=== PATIENT | female | born 2000 | race Caucasian/White ===

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

== ENCOUNTER 2021-02-16 12:38 | Emergency (ER) | payer OTHER ==
[~2021-02-16] VITALS: Ht 154.9 cm; Wt 66.3 kg
[~2021-02-16 12:38] MED LIST changes: +DOCU100C16 PO; +IBUP80TA PO
[2021-02-16] MEDS ORDERED: NS 1,000 ML IV ONE (13:25)
[2021-02-16] MEDS ORDERED: ONDANSETRON 4MG/2ML VIAL IV ONE (13:25)
[2021-02-16 14:02] LABS: BASO % 0.3 % (0.0-1.0); EOS % 0.3 % (0.0-3.0); HEMOGLOBIN 12.6 g/dl (12.0-15.5); LYMPH # 1.8 10^3/uL (1.5-5.0); LYMPH % 26.1 % (24.0-44.0); MEAN CORPUSCULAR HEMOGLOBIN 28.5 pg (27.0-33.0); MEAN CORPUSCULAR HGB CONC 33.2 g/dl (32.0-36.5); MONO # 0.4 10^3/uL (0.0-0.8); MONO % 6.1 % (2.0-8.0); NEUTROPHILS # 4.7 10^3/uL (1.5-8.5); NEUTROPHILS % 66.9 % (36.0-66.0); PLATELET COUNT, AUTOMATED 230 10^3/uL (150-450); RED BLOOD COUNT 4.42 10^6/uL (4.00-5.40)
[2021-02-16] MEDS ORDERED: ACETAMINOPHEN TAB 650MG DOSE (2X325MG) PO ONE (14:45)
[2021-02-16] MEDS ORDERED: ZOFR4TAB16 PO (14:46)
[2021-02-16 14:55] VITALS: BP 106/61
== END 2021-02-16 15:07 | disposition home or self-care (01) ==
LOC: M ED 12:38
DX: O21.9 Vomiting of pregnancy, unspecified (principal); O99.282 Endocrine, nutritional and metabolic diseases complicating pregnancy, second trimester; E86.0 Dehydration; R51.9 Headache, unspecified; Z3A.00 Weeks of gestation of pregnancy not specified
CPT/HCPCS: 80047; 81001; 85025; 96361; 96374; 99284; J2405

== ENCOUNTER 2021-05-12 07:43 | Inpatient (IN) | payer OTHER ==
[2021-05-12] VITALS (12 sets, daily range): BP systolic 98–137; BP diastolic 51–63
[~2021-05-12] VITALS: Ht 154.9 cm; Wt 70.9 kg
[~2021-05-12 07:43] MED LIST changes: +ZOFR4TAB16 PO
[2021-05-12] MEDS ORDERED: LR 1,000 ML IV ONE (08:20)
[2021-05-12] MEDS ORDERED: ACETAMINOPHEN 500 MG TAB PO PRN ×2 (08:25→12:50)
[2021-05-12] MEDS ORDERED: VENL-115 PO (09:02)
[2021-05-12 09:18] LABS: HEMATOCRIT 31.2 % (36.0-47.0); HEMOGLOBIN 10.3 g/dl (12.0-15.5); MEAN CORPUSCULAR HEMOGLOBIN 28.7 pg (27.0-33.0); MEAN CORPUSCULAR VOLUME 86.9 fl (80.0-96.0); PLATELET COUNT, AUTOMATED 194 10^3/uL (150-450); RED BLOOD COUNT 3.59 10^6/uL (4.00-5.40); WHITE BLOOD COUNT 11.4 10^3/uL (4.0-10.0)
[2021-05-12 09:20] LABS: APPEARANCE, URINE CLOUDY (CLEAR); BACTERIA, URINE AUTO NEGATIVE (NEGATIVE); BILIRUBIN, URINE AUTO NEGATIVE (NEGATIVE); BLOOD, URINE BLOOD NEGATIVE (NEGATIVE); COLOR, URINE AMBER (YELLOW); GLUCOSE, URINE (UA) AUTO NEGATIVE (NEGATIVE); KETONE, URINE AUTO 1+ mg/dL (NEGATIVE); LEUKOCYTE ESTERASE, URINE AUTO 1+ (NEGATIVE); MUCUS, URINE SMALL (NEGATIVE); NITRITE, URINE AUTO NEGATIVE (NEGATIVE); PROTEIN, URINE AUTO 1+ mg/dL (NEGATIVE); RBC, URINE AUTO 2 /HPF (0-3); SPECIFIC GRAVITY URINE AUTO 1.017 (1.002-1.035); SQUAMOUS EPITHELIAL CELL UR AU 50 /HPF (0-6); WBC, URINE AUTO 6 /HPF (0-3)
[2021-05-12] MEDS ORDERED: VALT500T PO (09:20)
[2021-05-12] MEDS ORDERED: TUMS750C5 PO (09:24)
[2021-05-12] MEDS ORDERED: ACET500P3 PO (09:24)
[2021-05-12] MEDS ORDERED: ACET-683 PO (09:35)
[2021-05-12 09:36] LABS: ALBUMIN 2.8 GM/DL (3.2-5.2); ALT/SGPT 13 U/L (12-78); BILIRUBIN,TOTAL 0.5 MG/DL (0.2-1.0); BLOOD UREA NITROGEN 6 MG/DL (7-18); CALCIUM LEVEL 8.2 MG/DL (8.5-10.1); CARBON DIOXIDE LEVEL 20 MEQ/L (21-32); CHLORIDE LEVEL 101 MEQ/L (98-107); CREATININE FOR GFR 0.52 MG/DL (0.55-1.30); GLUCOSE, FASTING 94 MG/DL (70-100); POTASSIUM SERUM 3.3 MEQ/L (3.5-5.1); SODIUM LEVEL 132 MEQ/L (136-145); TOTAL PROTEIN 6.4 GM/DL (6.4-8.2)
[2021-05-12] MEDS ORDERED: ONDANSETRON 4MG/2ML VIAL IV ONE (09:50)
[2021-05-12] MEDS ORDERED: KETOROLAC 30 MG/ML 1ML VIAL IV ONE (10:10)
[2021-05-12] MEDS ORDERED: VENLAFAXINE 37.5 MG TAB PO ONE (10:25)
[2021-05-12] MEDS ORDERED: FLUCONAZOLE 50MG TABLET PO ONE (10:25)
[2021-05-12 10:46] LABS: INFLUENZA A AMPLIFICATION NEGATIVE (NEGATIVE); INFLUENZA B AMPLIFICATION NEGATIVE (NEGATIVE)
[2021-05-12] MEDS: VENLAFAXINE **XR** 75MG CAPSULE PO SCH (11:29)
[2021-05-12] MEDS: PIPERACILLIN/TAZOBACTAM SOD 3.375 GM in D5W MINI-BAG PLUS 50 ML IV SCH ×3 (11:31→23:00)
--- NOTE | 2021-05-12 11:33 | REP ---
INDICATION: abdominal tenderness, fever, r/o appendicitis. COMPARISON: None. TECHNIQUE: Transabdominal limited to the right lower quadrant in order to assess the appendix FINDINGS: Ultrasonographic evaluation of the right lower quadrant failed to identify the appendix. IMPRESSION: Acute appendicitis cannot be ruled out. <Electronically signed by Jeison Coe > 05/12/21 [id number]
[2021-05-12] MEDS: PRENATAL VITAMINS CHEWABLE TABLET PO SCH (11:38)
[2021-05-12] MEDS: metroNIDAZOLE (FLAGYL) 500MG TABLET PO SCH ×2 (11:38→20:49)
--- NOTE | 2021-05-12 11:49 | REP ---
INDICATION: Fever of unknown source, uterine tenderness. COMPARISON: None. TECHNIQUE: Transabdominal imaging FINDINGS: Multiple ultrasonographic images of the gravid uterus shows a single living intrauterine gestation in the cephalic presentation. Doppler interrogation of the heart shows a heart rate of 151 beats per minute. The cervix measures 4 cm in length and is closed. The placenta is anterior and not low-lying. The subjective amniotic fluid volume is within normal limits. The calculated amniotic fluid index is 20.2 with an expected range 9.4 to 22.7. Doppler interrogation of the umbilical artery shows an AB ratio of 2.38. This is within the normal range. anatomical structures seen to be unremarkable are as follows: Thalami, cavum septum pellucidum, cerebellum, cisterna magna, cerebral ventricles, spine, kidneys, stomach, four-chamber heart, ventricular outflow tracts, kidneys, upper lip, cord insertion, and three-vessel umbilical cord. Although the extremities were seen to be within normal limits measurement did show 2+ weeks behind other parameters. BPD: 7.0 cm 28 weeks 2 day HC: 26.2 cm 28 weeks 4 days AC: 24.4 cm 28 weeks 5 days FL: 4.7 cm 25 weeks 4 days The estimated weight is 1099 g which is at the 52nd percentile for a 27 week 4 day gestational age. IMPRESSION: Single living intrauterine gestation as described above with an estimated gestational age of 27 weeks 4 days via composite criteria and an estimated date of delivery of 08/07/2021 by today's exam. No anomalies were detected, however, limb length is behind other growth parameters as described above. Clinical correlation is recommended. Continued ultrasonographic surveillance is suggested. <Electronically signed by Jeison Coe > 05/12/21 [id number]
[2021-05-12 12:10] LABS: CHLAMYDIA DNA AMPLIFICATION NEGATIVE (NEGATIVE); GC DNA AMPLIFICATION NEGATIVE (NEGATIVE)
--- NOTE | 2021-05-12 12:47 | HPEPDOC ---
Obstetrical History & Physical General Date of Admission May 12, 2021 at 09:56 History of Present Illness 20 yo at 25w5d with ADY of 20 AUG 2021 presents to L&D with complaints of overall malaise, chills, headache, contractions, and abdominal tenderness. She reports that she starting not feeling well yesterday and noticed that she had abdominal pain and contractions. She was hydrating and started to have nausea. She reports a throbbing headache today. She denies any sick contacts, dysuria, hematuria, frequency, chest pain, RUQ pain, visual changes, and vaginal discharge/itching/odor. She denies leaking of fluid, vaginal bleeding, and reports positive movement. Chief Complaint: Other (Fever of unknown cause) Information Provided By: Patient Age: 20 : 3 Term: 2 Pre-term: 0 Abortions: 0 Livin Dating Final EDC: Aug 20, 2021 Final EDC by: 1st trimester () 1st Trimester Date: Jan 12, 2021 Weeks + Days: 8 (+4) EGA at Admission: 25 (+5) Antepartum Course Height (inches): 61 Pre- weight (lbs.): 140 Admission Weight (lbs.): 155 Change in Weight (lbs.): 15 Past Medical History Past Obstetrical History #1: Past Obstetrical History: Multigravida Date of Delivery: Feb 08, 2018 Gestation: 40 Type of Delivery: Spontaneous Vaginal Del. Weight of Infant (grams): 3883 Complications: No Past Obstetrical History #2: Past Obstetrical History: Multigravida Date of Delivery: Jul 15, 2020 Gestation: 40 Type of Delivery: Spontaneous Vaginal Del. Weight of (grams): 4025 Complications: No ASSOCIATE STORE DIRECTOR History: Herpes simplex virus(HSV) Past Medical History Medical History Seasonal allergies, depression, anxiety, hx of self harm (cutter) age 12-18, mild scoliosis, HSV, Rh negative, migraines with aura, and hx of pneumonia Surgical History: Denies/None Family History Significant Family History: No pertinent family hx Social History Marital Status: Family situation: Spouse/partner home Psychosocial History: Depression * Smoker: non-smoker Alcohol: Denies Drugs: denies Abuse Violence Screening Have you been hit/kicked/slapp: No Have you been sexually assault: No Allergies Coded Allergies: No Known Allergies (Unverified , 06/06/20) Medications Scheduled No.137/Iron/Folic Acd ( Vitamin Tablet) 1 Each Tablet, 1 TAB PO DAILY Valacyclovir HCl (Valtrex) 500 Mg Tablet, 1 TAB PO DAILY daily at end of Venlafaxine HCl (Venlafaxine HCl ER) 75 Mg Tab.er.24, 75 MG PO DAILY Scheduled PRN Acetaminophen (Acetaminophen) 500 Mg Tablet, 500-1,000 MG PO Q6HP PRN for MILD DISCOMFORT Calcium Carbonate (Tums) 300 Mg Tab.chew, 1-2 TABS PO Q6HP PRN for INDIGESTION Ondansetron HCl (Zofran) 4 Mg Tablet, 1 TAB PO Q6-8HP PRN for nausea/vomiting Physical Examination Physical Examination GENERAL: Alert and oriented times three. BREAST: . ABDOMEN: Gravid and tender to touch across the RLQ and LLQ. FETUS: Is vertex (VTX) by sterile vaginal examination (SVE), fetus is vertex (VT X) by Jamie. HEART RATE: Tachycardia. LUNGS: Clear to auscultation (CTA). EXTREMITIES: No edema. No clonus. Deep tendon reflexes (DTRs) + 2. SKIN: Skin feels hot to touch over the body. Multiple bug bites and excoriation from scratching noted over the legs, arms, and chest. No vaginal lesions noted. CVAT noted on the left flank and no CVAT on the right flank Sterile speculum exam: No blood or pooling of fluid noted in the vaginal vault. Copious amounts of thin white discharge noted coating the vaginal vault. No lesions noted in the vagina or on the cervix. The cervix appears closed by spec ulum exam. Cervical exam: Long, thick, closed, posterior, and high RODRIGO and wet mount: clue cells present, yeast present, trich absent Laboratory Data 24H LABS Laboratory Tests 2 05/12/21 08:33: Anion Gap 11, Calcium Level 8.2L, Total Bilirubin 0.5, Aspartate Amino Transf (AST/SGOT) 14, Alanine Aminotransferase (ALT/SGPT) 13, Alkaline Phosphatase 93, Total Protein 6.4, Albumin 2.8L, Albumin/Globulin Ratio 0.8L, Coronavirus (COVID-19)(PCR) NEGATIVE 05/12/21 08:34: Nucleated Red Blood Cells % (auto) 0.0, Urine Color GABBY, Urine Appearance CLOUDYH, Urine pH 6.0, Urine Specific [place] 1.017, Urine Protein 1+H, Urine G lucose (Auto)(UA) NEGATIVE, Urine Ketones (Auto) 1+H, Urine Blood NEGATIVE, Urine Nitrite NEGATIVE, Urine Bilirubin NEGATIVE, Urine Urobilinogen 4.0H, Urine Leukocyte Esterase (Auto) 1+H, Urine WBC (Auto) 6H, Urine RBC (Auto) 2, Urine Hyaline Casts (Auto) 0, Urine Bacteria (Auto) NEGATIVE, Urine Squamous Epithelial Cells 50, Urine Mucus (Auto) SMALL, Urine Sperm (Auto) 05/12/21 09:57: CBC/BMP Laboratory Tests 05/12/21 08:33 05/12/21 08:34 Microbiology Microbiology 05/12/21 Blood Culture, Received Pending 05/12/21 Blood Culture, Received Pending 05/12/21 Urine Culture, Received Pending Pertinent Laboratoy Data Blood Type: A- RBC Antibody Screen: Negative HIV: Negative Hepatitis B: Negative Rapid Plasma Reagin: Nonreactive Rubella: Immune Varicella: Immune Chlamydia/Gonorrhea: Negative Cystic Fibrosis: Negative Vaginal Examination Dilation: None Effacement: other (long) Station: -3 Cervical Consistency: Firm Cervical Position: Posterior Presentation: Cephalic presentation Position: Vertex (occiput) Assessment Heart Rate (FHR): 170 Variability: Moderate Accelerations: Present Decelerations: None Tocometer Contractions: Yes Frequency: other (every 2-3 minutes with uterine irritability) Multi-drug resistant Organism: No history of MDRO Assessment/Plan Assessment Fever of unknown cause Suspected appendicitis Suspected pyelonephritis Bacterial vaginosis Yeast Plan Admit to inpatient Lab: CBC, CMP, UA, UC, Blood cultures x2, CMV, Toxoplasmosis, GC/CT, trich, urine drug screen, COVID, RSV, and flu US: Renal, abdominal, and OB Consider MRI if US is inconclusive for appendicitis Zofran, toradol x1, and tylenol Clear liquid diet, advance diet as tolerated Strict I&O and VS Start zosyn, flagyl, and diflucan Will await results of labs and radiology studies Discussed plan and patient status with Dr. Alfonso, who agrees and recommends this plan ESTEBAN RAYMUNDO CNM May 12, 2021 10:48
[2021-05-12] MEDS ORDERED: diphenhydrAMINE 25MG CAP PO PRN (12:50)
[2021-05-12] MEDS ORDERED: diphenhydrAMINE CREAM 30GM TOP PRN (12:50)
[2021-05-12] MEDS ORDERED: ONDANSETRON 4 MG TAB PO SCH (14:00)
[2021-05-12] MEDS: LR 1,000 ML IV SCH (14:55)
[2021-05-12 15:02] LABS: AMPHETAMINES LEVEL URINE NEGATIVE (NEGATIVE); BARBITURATES URINE NEGATIVE (NEGATIVE); BENZODIAZEPINES URINE NEGATIVE (NEGATIVE); CANNABINOIDS URINE NEGATIVE (NEGATIVE); COCAINE METABOLITE URINE NEGATIVE (NEGATIVE); METHADONE URINE NEGATIVE (NEGATIVE); OPIATES URINE NEGATIVE (NEGATIVE); PHENCYCLIDINE URINE NEGATIVE (NEGATIVE)
--- NOTE | 2021-05-12 15:20 | REP ---
INDICATION: abdominal tenderness, r/o appendicitis. COMPARISON: Limited pelvic ultrasound today. TECHNIQUE: Multiple sequences obtained in the axial, coronal and sagittal planes without the use of intravenous contrast. FINDINGS: Large gravid uterus is noted containing a well developed fetus. Prominent adnexal and periuterine vessels are noted. The large uterus causes significant crowding of bowel loops. The bowel loops are normal in caliber. I do not see evidence of an inflamed, dilated appendix in the right abdomen. There is trace free fluid in the pelvis. I do not see significant free fluid in the upper abdomen. The gallbladder demonstrates no filling defect or wall edema. The kidneys demonstrate no hydronephrosis. IMPRESSION: No acute abnormalities are identified. I do not see evidence for appendicitis. The appendix could not be discretely identified due to significant crowding of bowel loops by the enlarged gravid uterus. The gallbladder demonstrates no evidence of gallstones or wall edema. There is no hydronephrosis of the kidneys. <Electronically signed by Teodoro Eisenberg > 05/12/21 [id number]
[2021-05-12] MEDS ORDERED: ONDANSETRON 4 MG TAB PO PRN (15:35)
--- NOTE | 2021-05-12 16:18 | REP ---
INDICATION: Fever of unknown source. Twenty-eight week gestation. COMPARISON: None. TECHNIQUE: Urinary tract sonography. FINDINGS: Visualized bladder issa are smooth. Emptying ureteral jets are confirmed with from both ureters on color Doppler interrogation of the bladder lumen.. Renal cortical echogenicity pattern is normal bilaterally and contours are smooth. There is no evidence of hydronephrosis, cyst, mass, or calculus in either kidney. The right kidney measures 11.6 x 6.5 x 4.1 cm. Left renal dimensions are 11.3 x 5.3 x 5.2 cm. Doppler resistive indices intralobar arteries is normal bilaterally 0.77 on the right and 0.76 on the left. IMPRESSION: Normal urinary tract sonography. No evidence of hydronephrosis on either side. No K[place]um renal or intrarenal lesion. <Electronically signed by Osmar Mccollum > 05/12/21 [id number]
[2021-05-12] MEDS: ACETAMINOPHEN 500 MG TAB PO SCH (17:29)
[2021-05-13] VITALS (13 sets, daily range): BP systolic 106–139; BP diastolic 53–65
[2021-05-13] MEDS: ACETAMINOPHEN 500 MG TAB PO SCH ×3 (00:05→12:27)
[2021-05-13 06:08] LABS: CYTOMEGALOVIRUS IgG ANTIBODY <0.60 U/mL (0.00-0.59); CYTOMEGALOVIRUS IgM ANTIBODY <30.0 AU/mL (0.0-29.9); TOXOPLASMA IgG ABY <3.0 IU/mL (0.0-7.1)
[2021-05-13] MEDS: PIPERACILLIN/TAZOBACTAM SOD 3.375 GM in D5W MINI-BAG PLUS 50 ML IV SCH ×3 (06:54→16:57)
--- NOTE | 2021-05-13 07:02 | IPNPDOC ---
Text Note Date of Service The patient was seen on 05/13/21. NOTE Sonia is 20 yo at 25+6 weeks gestation who was admitted yesterday for a fever of unknown origin, headache, malaise, abdominal pain, and tachycardia. Fever workup was initiated and we have thus far not found a source. Blood and urine cultures are pending. Ultrasound and MRI of her abdomen are unremarkable. She has tested negative for COVID and influenza. She has also tested negative for toxo and CMV antibodies. She was has been on continuous IV fluids and IV zosyn. She was also started on Flagyl for BV and diflucan for candidiasis. Overnight, there has been no acute events. This morning Sonia reports feeling much improvement. She still has a headache and some neck stiffness, but she attributes this to sleeping in a hospital bed. She has been afebrile since yesterday morning. She is ambulating, voiding, and tolerating a regular diet. She denies any contractions, leakage of fluid, or vaginal bleeding. She endorses movement. Vitals - VSS, afebrile, normotensive, non tachycardic. Last fever on 12May2021 at 1000 to 100.4. Tmax 102.9 at 0812 on 12May2021. General - AAOX3, sitting up in bed, pleasant and conversant, NAD Abdomen - Gravid uterus, no fundal tenderness. Extremities - No edema NST - Appropriate for gestational age. Moderate variability and no decels. tachycardia has resolved. Labs: Pending AM CBC and CMP. Admission WBC count ~11. Pending blood and urine cultures CMV, toxo, GC/CT, COVID, influenza, RSV all negative Rads: Unremarkable abdominal US, abdominal MRI, and renal US. Sonia has shown clinical improvement on Zosyn, though no source of infection has yet been identified. If she fevers again and continues to headaches and neck stiffness, would consider Medicine consultation for possible lumbar puncture. Otherwise will await blood and urine cultures and adjust abx if necessary. For now will continue zosyn and IV fluids. NST Q6H. Regular diet. Further workup dependent upon clinical course. All patient questions answered. Kaden VS,Oliviae, I+O VS, Dontabone, I+O Laboratory Tests 05/12/21 08:33 05/12/21 08:34 Vital Signs Date Time Temp Pulse Resp B/P (MAP) Pulse Ox O2 Delivery O2 Flow Rate FiO2 05/12/21 20:43 97.9 81 116/55 (75) 05/12/21 18:43 20 05/12/21 14:19 99 Room Air I&O- Last 24 Hours up to 6 AM 05/13/21 05:59 Intake Total 2000 ml Output Total 710 ml Balance 1290 ml LEILA RUBY DO May 13, 2021 07:02
[2021-05-13 07:32] LABS: HEMATOCRIT 30.7 % (36.0-47.0); MEAN CORPUSCULAR HEMOGLOBIN 28.7 pg (27.0-33.0); MEAN CORPUSCULAR HGB CONC 32.6 g/dl (32.0-36.5); MEAN CORPUSCULAR VOLUME 88.2 fl (80.0-96.0); PLATELET COUNT, AUTOMATED 155 10^3/uL (150-450); RED BLOOD COUNT 3.48 10^6/uL (4.00-5.40)
[2021-05-13 08:19] LABS: ALBUMIN 2.2 GM/DL (3.2-5.2); ALT/SGPT 18 U/L (12-78); BILIRUBIN,TOTAL 0.3 MG/DL (0.2-1.0); BLOOD UREA NITROGEN 6 MG/DL (7-18); CALCIUM LEVEL 8.1 MG/DL (8.5-10.1); CARBON DIOXIDE LEVEL 22 MEQ/L (21-32); CHLORIDE LEVEL 107 MEQ/L (98-107); CREATININE FOR GFR 0.57 MG/DL (0.55-1.30); GLUCOSE, FASTING 84 MG/DL (70-100); POTASSIUM SERUM 3.6 MEQ/L (3.5-5.1); SODIUM LEVEL 136 MEQ/L (136-145); TOTAL PROTEIN 6.2 GM/DL (6.4-8.2)
[2021-05-13] MEDS: PRENATAL VITAMINS CHEWABLE TABLET PO SCH (08:28)
[2021-05-13] MEDS: VENLAFAXINE **XR** 75MG CAPSULE PO SCH (08:28)
[2021-05-13] MEDS: metroNIDAZOLE (FLAGYL) 500MG TABLET PO SCH (08:28)
--- NOTE | 2021-05-13 08:48 | REP ---
INDICATION: FUO in with chest tightness. COMPARISON: No comparison chest x-ray. TECHNIQUE: Two views.. FINDINGS: The lungs are well inflated and free of infiltrate. The pleural angles are sharp. The heart size is normal. Pulmonary vasculature is not increased. No significant bony abnormality is seen. There is a dextroconvex scoliotic curve in the thoracic spine and a levoconvex curve in the lumbar spine. IMPRESSION: Scoliosis. No infiltrate seen. Otherwise no active disease.. <Electronically signed by Osmar Mccollum > 05/13/21 [id number]
[2021-05-13] MEDS: LR 1,000 ML IV SCH (11:45)
[2021-05-13] MEDS ORDERED: ACETAMINOPHEN 500 MG TAB PO PRN (14:30)
[2021-05-13] MEDS ORDERED: CALCIUM CARBONATE 500 MG CHEW U/D PO PRN (15:00)
--- NOTE | 2021-05-13 20:37 | TRANSCARE ---
Transition of Care: Transition of Care Ms. Daniels is a 20yo at 25+6 who presented with malaise, chills, headache, contractions, and abdominal tenderness. She was found to be febrile on arrival. She reports that she starting not feeling well [id number] and noticed that she had abdominal pain and contractions. She was hydrating and started to have nausea. She reports a throbbing headache [id number]. Patient medical history is notable for HSV although the patient has been taking valtrex. She is Rh negative, has migraines with aura, has anemia of , and has a significant behavioral health history. Her baby has been category I with intermittent periods of tachycardia corresponding with fevers. She has had intermittent periods of contractions on tocometry that have corresponded with her fevers. Her vital signs have been normal with exception of the fevers and corresponding mild tachycardia. On physical exam she had an overall tender abdomen, left greater than right side, that has improved with treatments. She was noted to have bacterial vaginosis on speculum exam. No HSV lesions were seen on speculum exam. She had no flank pain. A cervical exam was closed, thick and high and has been unchanged throughout her stay and just prior to transport. She did endorse some neck soreness on [id number] in the morning but was able to complete a chin to chest test and stated her muscles were sore after sleeping in the hospital bed. She has had a normal/negative UDS, gonorrhea, chlamydia, RSV, influenze, COVID, CMV, and toxoplasmosis testing. Her urinalysis appeared contaminated, but had no overt signs of infection. Her trichomonas testing, blood cultures x2 (prior to antibiotics and after second fever spike episode), and urine cultures were still pending, but have had no growth since admission. Her WBC is 11 and has been unchanged on repeat assessment. Her liver enzymes and creatinine were normal. She had an ultrasound for the appendix, abdominal MRI, renal ultrasound, and ch est x-ray that were unremarkable. On obstetric ultrasound the growth was at the 52%ile and the cervical length 4cm. The DAWN was normal. She was treated for bacterial vaginosis with PO flagyl. Zosyn was started on 05/12 at approx 1100 for fever of unknown origin. As of 05/13 at time of transport the patient continued to fever up to 101F. Her fever was previously well controlled with tylenol but prior to transport was fevering through her most recent tylenol dosage. I spoke with Dr. Lemons from [facility] who accepted transfer. Nahun Guzmán DO [facility] Attending Physician NAHUN GUZMÁN DO May 13, 2021 20:37
== END 2021-05-13 21:05 | disposition short-term general hospital (02) | DRG 833 ==
LOC: M LDO 07:43 → M LDI 09:56
PROVIDERS: ADMIT Registered Nurse Maternal Newborn; ATTEND Obstetrics & Gynecology
DX: O99.891 Other specified diseases and conditions complicating pregnancy (principal); R50.9 Fever, unspecified; O23.592 Infection of other part of genital tract in pregnancy, second trimester; Z3A.25 25 weeks gestation of pregnancy; Z20.822 Contact with and (suspected) exposure to COVID-19; O99.342 Other mental disorders complicating pregnancy, second trimester; F32.9 Major depressive disorder, single episode, unspecified; F41.9 Anxiety disorder, unspecified; O99.012 Anemia complicating pregnancy, second trimester; D64.9 Anemia, unspecified; G43.109 Migraine with aura, not intractable, without status migrainosus; O99.352 Diseases of the nervous system complicating pregnancy, second trimester; O98.312 Other infections with a predominantly sexual mode of transmission complicating pregnancy, second trimester; A60.09 Herpesviral infection of other urogenital tract; O36.8320 Maternal care for abnormalities of the fetal heart rate or rhythm, second trimester, not applicable or unspecified

== ENCOUNTER → 2021-07-06 | Outpatient (CLI) | payer OTHER ==
[~2021-07-06] MED LIST changes: +ACET-683 PO; +ACET500P3 PO; +TUMS750C5 PO; +VALT500T PO; +VENL-115 PO
--- NOTE | 2021-07-06 10:58 | REP ---
INDICATION: SIZE GREATER THEN DATES PT DID NOT REALIZE HER SCAN WAS HERE COMPARISON: 05/12/2021 TECHNIQUE: Transabdominal obstetrical ultrasound with color Doppler evaluation. FINDINGS: Examination demonstrates a single live intrauterine in cephalic presentation. motion is identified by technologist. Placenta is noted anterior and grade 1 without evidence for placenta previa or abruption. Amniotic fluid volume is normal. Cervix measures 3.4 cm in length and appears closed. Selected gestational age: 33 weeks 4 days with ADY 08/20/2021. Gestational age by current measurements 34 weeks 6 days with ADY 08/11/2021. FHR equals 140 beats per minute. BPD: 8.8 cm at 35 weeks 5 days HC: 32.1 cm at 36 weeks 1 day AC: 31.5 cm at 35 weeks 3 days FL: 6.4 cm at 32 weeks 4 days HL: 5.9 cm at 34 weeks 1 day HC/AC: 1.02 Estimated weight 2530 grams (80thpercentile). DAWN: 15.6 cm Umbilical artery SD ratio: 2.33 Limited anatomical assessment demonstrates normal cranium, orbits, nose/lips, lungs, four-chamber heart, diaphragm, stomach, abdominal wall and kidneys/bladder. Of note, femur and humeral lengths again lag behind remainder of the biometric measurements IMPRESSION: 1. Single live intrauterine demonstrating appropriate estimated weight. 2. Limit lengths again lag behind remainder of the biometric measurements and evaluation may be warranted. <Electronically signed by Zheng Rogers > 07/06/21 [id number]
== END ==
LOC: M RAD 08:06
PROVIDERS: ATTEND Registered Nurse Maternal Newborn
DX: Z36.89 Encounter for other specified antenatal screening (principal); Z3A.33 33 weeks gestation of pregnancy

== ENCOUNTER 2021-08-15 10:14 | Outpatient (CLI) | payer OTHER ==
[~2021-08-15] VITALS: Ht 154.9 cm; Wt 79.2 kg
[2021-08-15 10:38] VITALS: BP 125/80
[2021-08-15] MEDS ORDERED: FERR325T3 PO (10:44)
[2021-08-15] MEDS ORDERED: HOME MED LIST COMPLETE! XX SCH (10:50)
--- NOTE | 2021-08-15 13:32 | IPNPDOC ---
Obstetrical Progress Note Date of Service Aug 15, 2021 Subjective 21 yo @ 39W2D by 8WK US ( Unsure LMP) who presents complaining of leakage of fluids. she was seen on monday and was checked and her mebranes were striped. reports since monday, she has noted increase in vaginal discharge on an off. she denies any vb, or decreased movement. she has no other concerns. FHT: 140, Mod katelin,+accels,+Accels,-decels, reactive nst Vitals: normal Lungs: normal work of breathing Abd: gravid, TAUS Cephalic, mvp 7.4cm ext; Grossly normal Pelvic: neg nitrazine, sve 1/t/h/ neg ferning a/p 21 yo @ 39W2D by 8WK US ( Unsure LMP) who presents complaining of leakage of fluids, negative w/o for SROM check. reactive NST. Due ped shortage cannot IOL at this time. given strict return precautions and placed on the induction schedule at 40w 1 d. f/u with [facility] as previously scheduled. Objective Vital Signs Date Time Temp Pulse Resp B/P (MAP) Pulse Ox O2 Delivery O2 Flow Rate FiO2 08/15/21 10:38 98.3 98 18 125/80 (95) ZOEY UNDERWOOD MD Aug 15, 2021 13:32
== END 2021-08-15 12:45 | disposition home or self-care (01) ==
LOC: M LDO 10:14
PROVIDERS: ATTEND Obstetrics & Gynecology
DX: O26.893 Other specified pregnancy related conditions, third trimester (principal); Z3A.39 39 weeks gestation of pregnancy; N89.8 Other specified noninflammatory disorders of vagina
CPT/HCPCS: 59025; 76815; G0378; G0463

== ENCOUNTER 2021-08-16 16:52 | Inpatient (IN) | payer OTHER ==
[~2021-08-16] VITALS: Ht 154.9 cm; Wt 81.6 kg
[2021-08-16] VITALS (17 sets, daily range): BP systolic 112–150; BP diastolic 62–90
[~2021-08-16 16:52] MED LIST changes: +FERR325T3 PO
[2021-08-16] MEDS ORDERED: LACTATED RINGER'S 1000 ML IV STA (17:53)
[2021-08-16] MEDS ORDERED: PENICILLIN G POTASSIUM IV 5 MU in D5W MINI-BAG PLUS 100 ML IV STA (17:53)
[2021-08-16] MEDS ORDERED: OXYTOCIN INJ 10 UNITS/ML VIAL (J2590) IM PRN (17:55)
[2021-08-16] MEDS ORDERED: TRANEXAMIC ACID INJection 1,000 MG in NS 100 ML IV PRN (17:55)
[2021-08-16] MEDS ORDERED: OXYTOCIN DRIP 30 UNITS in IV 1 EA IV PRN ×4 (17:55)
[2021-08-16] MEDS ORDERED: METHYLERGONOVINE MALEATE 0.2 MG/ML VIAL (J2210) IM PRN (17:55)
[2021-08-16] MEDS ORDERED: LIDOCAINE 1% MDV 20ML VIAL INFIL PRN (17:55)
[2021-08-16] MEDS ORDERED: CARBOPROST TROMETHAMINE 250 MCG/ML AMP IM PRN (17:55)
[2021-08-16] MEDS: LR 1,000 ML IV SCH ×2 (18:11→21:10)
--- NOTE | 2021-08-16 18:23 | HPEPDOC ---
Obstetrical History & Physical General Date of Admission Aug 16, 2021 at 17:50 History of Present Illness 21yo at 39+3 presented to L&D for contractions which started earlier thi s morning and continued throughout the day. Denies vaginal bleeding, loss of fluid. Endorses positive movement. 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 pertinent history Past Medical History Medical History hx of self harm (cutter) dep/anxiety mild scoliosis Family History Significant Family History: No pertinent family hx Social History Social history denies x3 Marital Status: Family situation: Spouse/partner home * Smoker: non-smoker Alcohol: Denies Drugs: denies Abuse Violence Screening Have you been hit/kicked/slapp: No Have you been sexually assault: No Imunizations Tdap status: current Influenza Status: current Allergies Coded Allergies: No Known Allergies (Unverified , 06/06/20) Medications Scheduled No.137/Iron/Folic Acd ( Vitamin Tablet) 1 Each Tablet, 1 TAB PO DAILY Valacyclovir HCl (Valtrex) 500 Mg Tablet, 1 TAB PO DAILY daily at end of Venlafaxine HCl (Venlafaxine HCl ER) 75 Mg Tab.er.24, 75 MG PO DAILY Miscellaneous Medications Ferrous Sulfate (Ferrous Sulfate) 325 Mg Tablet.dr, 325 MG PO Physical Examination Physical Examination GENERAL: Alert and oriented times three. ABDOMEN: Gravid and non-tender to touch. FETUS: Is vertex (VTX) by sterile vaginal examination (SVE), fetus is vertex (VTX) by ultrasound HEART RATE: Regular rate LUNGS: nonlabored breathing EXTREMITIES: No edema. Speculum exam: no visible lesions on vulva, vagina or cervix Vital Signs/I&O Vital Signs Date Time Temp Pulse Resp B/P (MAP) Pulse Ox O2 Delivery O2 Flow Rate FiO2 08/16/21 17:07 97 123/77 (92) 08/16/21 17:06 97.5 20 Laboratory Data 24H LABS Laboratory Tests 2 08/16/21 17:53: Serology Scanned Report Hepatitis B Testing CBC/BMP hct 39.5 plt 205 Urine Culture: Other (GBS) Pertinent Laboratoy Data Blood Type: A- RBC Antibody Screen: Negative HIV: Negative Hepatitis B: Negative Rapid Plasma Reagin: Nonreactive Rubella: Immune Varicella: Immune Chlamydia/Gonorrhea: Negative Group B Streptococcus: Positive Cystic Fibrosis: Negative Glucose Tolerance Test: 77 Anatomy Ultrasound Placenta Location: Anterior Normal Anatomy: Yes Placenta Previa: No Steroid Therapy Steroid Therapy: No Vaginal Examination Dilation: 6 cm Effacement: 90% Station: -1, 0 Presentation: Cephalic presentation Position: Vertex (occiput) Assessment Heart Rate (FHR): 140 Variability: Moderate Accelerations: Positive Decelerations: None Tocometer Contractions: Yes Frequency: regular, every 2-5 min. Multi-drug resistant Organism: No history of MDRO Assessment/Plan Assessment Sonia Daniels is a 21-year-old (G)3 para (P)2001 at 39+3 weeks by f irst trimester ultrasound. Presents to Labor and Delivery (L&D) in active labor. GBS+, HSV on valtrex, no lesions on speculum exam. Plan Admit and orient. Hydraulic Riveter and consent. Diet: clear liquid. Group B Streptococcus (GBS) positive, penicillin ordered. Labs and intravenous (IV) per unit protocol. Counseled on Pitocin and induction of labor (IOL). Lactated Ringers (LR): Bolus 500 mL, then at 125 mL/hr. Anticipate normal spontaneous delivery (). C-S as appropriate. Labor and Delivery Counseling L&D consent We will deliver your baby through the vagina with possible assistance of forceps or vacuum device if needed for maternal or indications. Forceps and vacuum are devices that can assist with vaginal delivery when normal pushing efforts cannot achieve delivery on their own or when delivery is needed in an emergency for baby's well-being. Medications may be required to induce or augment (help) your labor in order to achieve a vaginal delivery. An episiotomy may be required to help your baby to delivery vaginally. You may also require repair of any lac erations or tears of your vagina or vulva that are caused by delivery. In some cases, emergencies can occur that require an emergency section delivery so quickly that there may not be enough time to stop and complete consent forms for section. Understand that if this occurs, your providers will discuss the need for a section with you before they proceed with surgery. section is the delivery of your baby through an incision in your abdomen. In some situations, section may be safer to mom and baby than continuing labor and is only performed when clinically indicated. Risks of vaginal delivery include but are not limited to: Bleeding, infection, injury to the vagina, pelvic structures, injury to baby, damage to the uterus, reactions to anesthesia, uterine rupture, risk of hysterectomy for life threatening bleeding, or . Medications used to induce or augment labor may increase your risk for infection, uterine tachysystole, uterine rupture, heart rate abnormalities, need for emergency delivery or possible hysterectomy, and hemorrhage. Additional risks for use of forceps and vacuum include: increased risk of perineal and vaginal lacerations, risk of urinary or bowel incontinence, increased risk of injury to baby with bruising, scratches, hematomas on the head, or intracranial bleeding. ANDRY SHORT. DO Aug 16, 2021 18:23
[2021-08-16 18:45] LABS: HEMATOCRIT 37.3 % (36.0-47.0); HEMOGLOBIN 12.3 g/dl (12.0-15.5); MEAN CORPUSCULAR HEMOGLOBIN 29.1 pg (27.0-33.0); MEAN CORPUSCULAR VOLUME 88.2 fl (80.0-96.0); PLATELET COUNT, AUTOMATED 194 10^3/uL (150-450); RED BLOOD COUNT 4.23 10^6/uL (4.00-5.40); WHITE BLOOD COUNT 8.3 10^3/uL (4.0-10.0)
[2021-08-16] MEDS ORDERED: FENTANYL 2MCG/ML ROPIVACAINE 0.2% IN 0.9% NACL 100ML IVBAG As Ordered ONE (19:02)
[2021-08-16] MEDS ORDERED: REFRIGERATOR IV KEYS XX PRN (19:05)
[2021-08-16] MEDS ORDERED: diphenhydrAMINE 50MG/ML VIAL (J1200) IV PRN (19:05)
[2021-08-16] MEDS ORDERED: NALOXONE INJ 0.4MG/1ML VIAL (J2310 PER 1MG) IV PRN (19:05)
[2021-08-16] MEDS ORDERED: LACTATED RINGER'S 1000 ML IV PRN (19:05)
[2021-08-16] MEDS ORDERED: ONDANSETRON 4MG/2ML VIAL IV PRN ×2 (19:05→22:00)
[2021-08-16] MEDS ORDERED: EPIDURAL COMMENT XX SCH (19:05)
[2021-08-16] MEDS ORDERED: ePHEDrine SULFATE 25 MG/5 ML(5MG/ML) SYRINGE IV PRN (19:05)
[2021-08-16] MEDS ORDERED: FENTANYL/ROPIVACAINE/NACL BAG 100 ML EPIDURAL SCH (19:05)
[2021-08-16] MEDS ORDERED: EPIDURAL/PCA KEYS XX PRN (19:05)
[2021-08-16] MEDS ORDERED: OXYTOCIN 30 UNITS IN 0.9% NaCl 500ML IV BAG (J2590) As Ordered ONE (20:36)
--- NOTE | 2021-08-16 21:34 | DNPDOC ---
[facility] Delivery Note Delivery Note DATE OF DELIVERY: [id number] PREDELIVERY DIAGNOSIS: 39+3 weeks' gestation and labor. POST DELIVERY DIAGNOSIS: Delivered. PROCEDURE: [Spontaneous vaginal delivery ASSISTANT PLANT CONTROL OPERATOR: Andry Alexandra DO ANESTHESIA: epidural ESTIMATED BLOOD LOSS: 300 mL. FINDINGS: 8 pound 11 ounce 3940g , Score 8/9 DELIVERY SUMMARY: I was called to the room by nursing as patient was c/c/0. The tracing was in the normal range with moderate variability. The patient was draped and a repeat cervical exam verified the nurse's findings. Over the next several pushes she made continuous gentle progress. The head delivered and restituted MEREDITH. The anterior shoulder delivered easily followed by the posterior shoulder and corpus. The was placed on the maternal abdomen. After one minute delay the cord was clamped and cut. Vigorous cry was noted. The placenta then delivered spontaneously intact. Uterine massage until firm. Inspection of perineum revealed bilateral labial abrasions, hemostatic not requiring suture. Mother and baby were left in good condition. ANDRY ALEXANDRA DO Aug 16, 2021 21:34
[2021-08-16] MEDS ORDERED: METHYLERGONOVINE MALEATE 0.2 MG TAB PO PRN (22:00)
[2021-08-16] MEDS ORDERED: PENICILLIN G POTASSIUM IV 2.5 MU in IV 1 EA IV SCH (22:00)
[2021-08-16] MEDS ORDERED: MEASLES,MUMPS,RUBELLA VACCINE INJ (MMR-II) (90707) SC SCH (22:00)
[2021-08-16] MEDS ORDERED: RHOGAM 300 MCG (1500 IU) INJ (J2790) IM SCH (22:00)
[2021-08-16] MEDS ORDERED: ACETAMINOPHEN TAB 650MG DOSE (2X325MG) PO PRN (22:00)
[2021-08-16] MEDS ORDERED: ACETAMINOPHEN 500 MG TAB PO PRN (22:00)
[2021-08-16] MEDS ORDERED: IBUPROFEN 600MG TAB PO PRN (22:00)
[2021-08-16] MEDS ORDERED: DIBUCAINE 1% OINTMENT 30GM TOP PRN (22:00)
[2021-08-16] MEDS ORDERED: DOCUSATE SODIUM 100MG CAPSULE PO PRN (22:00)
[2021-08-17] MEDS: IBUPROFEN 800 MG TAB PO PRN ×2 (05:24→21:53)
[2021-08-17 06:05] VITALS: BP 109/62
--- NOTE | 2021-08-17 06:41 | IPNPDOC ---
Progress Note Date of Service: Aug 17, 2021 Day#: 1 Progress Note SUBJECT: Sonia Daniels is a 21-year-old 3 now Para 3003 status post uncomplicated spontaneous vaginal delivery at 39+3 weeks' at approximately 2107 hours on [id number] of a male 8 pounds 11 ounces (3940 grams) with post vaginal laceration and repair, doing well day # 1. She has been ambulating, voiding spontaneously without issue and tolerating regular diet. Breast feeding without issue. Reports lochia is decreasing. OBJECTIVE: VITAL SIGNS: Within normal limits, afebrile. Alert and oriented times three. nonlabored breathing Heart rate: Regular rate Abdomen: Fundus firm at U-2. Soft, NTTP. negative calf tenderness bilaterally ASSESSMENT: as above doing well on day 1. Vitals within normal limits, afebrile, hemodynamically stable with no evidence of infection. A negative blood type; baby with positive blood type; rhogam given. PLAN: 1. Discharge to home tomorrow 2. Tylenol and Motrin for pain. 3. Encourage breast feeding and ambulation. 4. Minipill for contraception for now 5. Routine PP visit in 6 weeks in clinic. 6. Routine care VS, I&O, 24H, Fishbone Vital Signs/I&O Vital Signs Date Time Temp Pulse Resp B/P (MAP) Pulse Ox O2 Delivery O2 Flow Rate FiO2 08/17/21 06:05 97.0 60 18 109/62 (78) 99 08/16/21 19:20 Room Air I&O- Last 24 Hours up to 6 AM 08/17/21 06:00 Intake Total 1123 ml Output Total 1150 ml Balance -27 ml Laboratory Data 24H LABS Laboratory Tests 2 08/16/21 17:53: Serology Scanned Report Hepatitis B Testing 08/16/21 18:04: Nucleated Red Blood Cells % (auto) 0.0, Syphilis Serology NONREACTIVE CBC/BMP Laboratory Tests 08/16/21 18:04 ANDRY SHORT DO Aug 17, 2021 06:41
[2021-08-17 07:02] LABS: HEMATOCRIT 34.7 % (36.0-47.0); HEMOGLOBIN 11.3 g/dl (12.0-15.5); MEAN CORPUSCULAR HGB CONC 32.6 g/dl (32.0-36.5); PLATELET COUNT, AUTOMATED 161 10^3/uL (150-450); WHITE BLOOD COUNT 9.1 10^3/uL (4.0-10.0)
[2021-08-17] MEDS: PRENATAL VITAMINS CHEWABLE TABLET PO SCH (10:03)
[2021-08-17 18:02] VITALS: BP 115/74
[2021-08-18 06:38] VITALS: BP 90/51
[2021-08-18] MEDS ORDERED: IBUP-1022 PO (07:17)
[2021-08-18] MEDS ORDERED: DOCU100C16 PO (07:17)
--- NOTE | 2021-08-18 07:55 | IPN ---
PROGRESS NOTE DATE: 08/17/2021 SUBJECTIVE: This patient requested circumcision of her male infant. After discussing risks and benefits of circumcision, the medical and non-medical indications, penile block and aftercare, expressed understanding of penile block, aftercare and bleeding. Signed a consent form. All questions were answered; twenty minute discussion. We await the clearance by the typesetter perforator operator.
[2021-08-18] MEDS: PRENATAL VITAMINS CHEWABLE TABLET PO SCH (08:18)
[2021-08-18] MEDS: IBUPROFEN 800 MG TAB PO PRN (08:29)
--- NOTE | 2021-08-18 08:58 | DSES ---
DISCHARGE SUMMARY DATE OF ADMISSION: 08/16/2021 DATE OF DISCHARGE: 08/18/2021 BRIEF HISTORY: This is a 21-year-old 3 now para 3, admitted at 39 and 3 with contractions. She had a spontaneous vaginal delivery with epidural in place, male , 8 pounds, 11 ounces, 3940 grams, Apgars of 8 and 9 at 1 and 5 minutes respectively. On her first day, we discussed phlebitis, cystitis, mastitis, endometritis, cellulitis, diet, exercise, pain management, perineal, breast and wound care. PHYSICAL EXAMINATION: The rest of the examination is unremarkable. Normocephalic, atraumatic. Neck with full range of motion. Pupils equal and reactive to light. Distal pulses are symmetric. No evidence of DVT, PE or superficial phlebitis. Chest is clear bilaterally to bases. No wheezes or rhonchi. No CVA tenderness. Abdomen is soft, four quadrant bowel sounds are noted. Uterus is two below. Lochia is moderate. Perineum is intact. No rashes, lesions or pruritus. No arthralgias or myalgias. No complaint of joint pain. No complaint of cough, wheeze, shortness of breath or dyspnea on exertion. No nausea, vomiting, diarrhea or constipation. No urgency or frequency. Admitting hemoglobin 12.3, hematocrit 37.3 and platelets 194,000. Discharge hemoglobin 11.3, hematocrit 34.7 and platelets were 161,000. Her vital signs on discharge: Blood pressure was 90/51, respirations 18, pulse 65, temperature 97.6. In summary, we have a term gestation, delivered a livebirth male infant. Plans are to tow picker medications at [place], a six week checkup at which time control will be discussed. All questions were answered, a 20 minute discussion. Patient was discharged improved. cc: [facility]
== END 2021-08-18 12:20 | disposition home or self-care (01) | DRG 807 ==
LOC: M LDO 16:52 → M LDI 17:50 → M OBS 22:33
PROVIDERS: ADMIT Obstetrics & Gynecology; ATTEND Obstetrics & Gynecology
PROC: 10E0XZZ Delivery of Products of Conception, External Approach (ICD-10-PCS; principal; 2021-08-16)
DX: O98.32 Other infections with a predominantly sexual mode of transmission complicating childbirth (principal); Z37.0 Single live birth; A60.09 Herpesviral infection of other urogenital tract; O99.344 Other mental disorders complicating childbirth; F32.9 Major depressive disorder, single episode, unspecified; O36.63X0 Maternal care for excessive fetal growth, third trimester, not applicable or unspecified; O99.824 Streptococcus B carrier state complicating childbirth; Z3A.39 39 weeks gestation of pregnancy